=== PATIENT | male | born 1990 | race Two or more races ===

== ENCOUNTER 2020-12-21 11:06 | Emergency (ER) | payer SELFPAY ==
[~2020-12-21] VITALS: Ht 182.9 cm; Wt 90.7 kg
[2020-12-21 13:13] VITALS: BP 124/84
== END 2020-12-21 13:47 | disposition home or self-care (01) ==
LOC: ER 11:06
DX: S16.1XXA Strain of muscle, fascia and tendon at neck level, initial encounter (principal); S39.012A Strain of muscle, fascia and tendon of lower back, initial encounter; V43.52XA Car driver injured in collision with other type car in traffic accident, initial encounter; Y93.89 Activity, other specified; Y92.410 Unspecified street and highway as the place of occurrence of the external cause; Y99.8 Other external cause status
CPT/HCPCS: 72040; 72100